=== PATIENT | male | born 1945 | race Caucasian/White ===

== ENCOUNTER 2018-01-17 07:54 | Day surgery (SDC) | payer MEDICARE, BC ==
[2018-01-17] MEDS ORDERED: Sodium Chloride 0.9% 10 ML Syringe FLUSH PRN (08:00)
[2018-01-17] MEDS ORDERED: Lactated Ringers 1,000 ML IV SCH (08:00)
[2018-01-17] MEDS ORDERED: cefOXitin 2 GM in Sodium Chloride 0.9% 100 ML IV ONE (09:00)
[2018-01-17] MEDS ORDERED: cefOXitin 2 GM Vial IV ONE (09:00)
[2018-01-17] MEDS ORDERED: Dexamethasone 4 MG/ML 5 ML MDV IVPUSH ONE (09:25)
[2018-01-17] MEDS ORDERED: Midazolam 1 MG/ML 2 ML SDV IV ONE (09:25)
[2018-01-17] MEDS ORDERED: Succinylcholine 200 MG/10 ML MDV IV ONE (09:25)
[2018-01-17] MEDS ORDERED: Ondansetron 4 MG/2 ML SDV IVPUSH ONE (09:25)
[2018-01-17] MEDS ORDERED: Rocuronium 100 MG/10 ML MDV IV ONE (09:25)
[2018-01-17] MEDS ORDERED: Glycopyrrolate 0.2 MG/ML 2 ML SDV IV ONE (09:25)
[2018-01-17] MEDS ORDERED: Propofol 200 MG/20 ML SDV IV ONE (09:25)
[2018-01-17] MEDS ORDERED: Lactated Ringers 1,000 ML IV ONE (09:25)
[2018-01-17] MEDS ORDERED: fentaNYL 100 MCG/2 ML SDV IV ONE (09:25)
[2018-01-17] MEDS ORDERED: Ketorolac 30 MG/ML SDV IVPUSH ONE (09:25)
[2018-01-17] MEDS ORDERED: Neostigmine Methylsulfate 10 MG/10 ML MDV IVPUSH ONE (09:25)
[2018-01-17] MEDS ORDERED: diphenhydrAMINE 50 MG/ML SDV IV ONE (09:25)
[2018-01-17] MEDS ORDERED: Lidocaine 1% with EPINEPHrine 1:100,000 20 ML MDV INJECT ONE (09:51)
[2018-01-17] MEDS ORDERED: Bupivacaine 0.5% 30 ML SDV INJECT ONE (09:52)
[2018-01-17] MEDS ORDERED: Bacitracin Oint 28.35 GM Tube TOP ONE (10:01)
--- NOTE | 2018-01-17 10:23 | PCM.OPNOTE ---
- General Post-Op/Procedure Note Date of Surgery/Procedure: 01/17/18 Operative Procedure(s): hemorrhoidectomy Findings: grade 2 left lateral and right post hemorrhoids Pre Op Diagnosis: bleeding int. hemorrhoids Post-Op Diagnosis: grade 2 left lateral and right post hemorrhoids Anesthesia Technique: General ET Tube, Local (4 ml 1 % lido with epi/0.5% buvipicaine) Primary Surgeon: Vin Jones Anesthesia Provider: Mayte Taveras Pathology: grade 2 left lateral and right post hemorrhoids EBL in mLs: 2 Complications: None Condition: Good Free Text/Narrative:: see dictation
[2018-01-17 12:42] VITALS: BP 122/70
--- NOTE | 2018-01-19 08:38 | OR ---
DATE OF OPERATION: 01/17/2018 SURGEON: Vin Jones MD PREOPERATIVE DIAGNOSIS: Bleeding internal hemorrhoids. POSTOPERATIVE DIAGNOSIS: Grade 2 left lateral and right posterior hemorrhoid. INDICATIONS FOR PROCEDURE: This is a 72-year-old white male who has been treated for bleeding internal hemorrhoids with several bandings. He has continued to bleed and on the basis of this, he was offered and accepted a hemorrhoidectomy. INTRAOPERATIVE FINDINGS: As follows: The patient had grade 2 hemorrhoids in the left lateral and right posterior column. A total of 4 mL of 1:1 mixture of 1% lidocaine with epinephrine 0.5% bupivacaine was used. DESCRIPTION OF PROCEDURE: After an excellent general anesthetic was administered, the patient was placed in the prone keisha-knife position, prepped and draped in the usual sterile manner. Digital rectal exam was performed. No marked abnormality was noted. The anal speculum was inserted and our attention was first turned to the right posterior column. The base of the tissue was infiltrated with our local mixture. An elliptical incision was made through the mucosa of the hemorrhoid tissue narrowing at the anal verge and then an elliptical incision was carried out involving the external tag. Careful sharp dissection was carried out lifting the hemorrhoid off the underlying sphincter muscle and underlying submucosal layer coming to the apex. A Francisco crushing clamp was then placed at the tip of the hemorrhoid and this was then excised. Suture ligature of 0 Vicryl was then used to ligate the clamp, which was then removed and the defect was then closed with a running 0 Vicryl incorporating mucosal edges and the underlying muscularis until we came out beyond the anal verge. This was then tied. Attention was then turned to the left lateral column where the base was again infiltrated. A similar incision was made and sharp dissection was carried out starting at the apex and again dissecting the hemorrhoidal tissue off the sphincter muscle and off the muscularis level. Again, the Francisco crushing clamp was used to crush the apex. This was then ligated with 0 Vicryl and the defect was closed once again with a running 0 Vicryl incorporating the mucosa and the underlying muscularis layer coming out through the anal verge and tying. The area was irrigated. After ensuring that we had excellent hemostasis, Gelfoam coated in triple antibiotics was then rolled and placed into the anus. Dressing was applied. Needle, sponge, and instrument counts were reported as correct. The patient was taken to recovery room in good condition having tolerated the procedure well. /[id number] /MODL
== END 2018-01-17 12:35 | disposition home or self-care (01) ==
LOC: FB.SDS 07:54
PROVIDERS: ATTEND Surgery
DX: K64.1 Second degree hemorrhoids (principal); Z88.8 Allergy status to other drugs, medicaments and biological substances
CPT/HCPCS: 00902; 46260; A9270; J0694; J7120; J0330; J1100; J1200; J1885; J2250; J2405; J2704; J2710; J3010; J3490